=== PATIENT | female | born 1990 | race Caucasian/White ===

== ENCOUNTER 2017-08-30 12:09 | Emergency (ER) | payer SELFPAY ==
--- NOTE | 2017-08-30 12:56 | EDM.PDOC ---
ED HPI GENERAL MEDICAL PROBLEM - General Chief Complaint: Laceration Stated Complaint: PT CUT FINGER ON LT HAND Time Seen by Provider: 08/30/17 12:50 Source of Information: Reports: Patient History Limitations: Reports: No Limitations - History of Present Illness INITIAL COMMENTS - FREE TEXT/NARRATIVE: HISTORY AND PHYSICAL: History of present illness: [Patient comes to the emergency room for evaluation of a laceration to her left thumb. Occurred just prior to her arrival in the emergency room. She was working on a wood grinder, when her hand slipped cutting into her glove and the tip of her left thumb. She complained of immediate pain and some bleeding which has completely resolved. She cannot remember the date of her last tetanus. Has no other complaints or concerns.] Review of systems: As per history of present illness and below otherwise all systems reviewed and negative. Past medical history: As per history of present illness and as reviewed below otherwise noncontributory. Surgical history: As per history of present illness and as reviewed below otherwise noncontributory. Social history: No reported history of drug or alcohol abuse. Family history: As per history of present illness and as reviewed below otherwise noncontributory. Physical exam: HEENT: Atraumatic, normocephalic. Extremities: 1 cm long superficial laceration to the tip of her mid left thumb. Part of the tip of the nail has been ground down. No cuticle involvement. Hand is otherwise atraumatic. Neurovascular unremarkable. Neuro: Awake, alert, oriented. Motor and sensory unremarkable throughout. Exam nonfocal. Impression: [Superficial laceration left thumb] Plan: [Wound is cleansed and a copious amount of normal saline and chlorhexidine. Due to the nature of the injury there is no tissue present to be sutured. Will heal by secondary intention. Bacitracin is applied and dressed with roll gauze. Wound care instructions given. Strict return precautions discussed. Patient is in agreement with today's discussion. Tetanus is updated.] Definitive disposition and diagnosis as appropriate pending reevaluation and review of above. Left 1-Thumb Pain Score (Numeric/FACES): 1 - Related Data Allergies Allergy/AdvReac Type Severity Reaction Status Date / Time No Known Allergies Allergy Verified 08/30/17 12:28 Home Meds: Home Meds . [No Known Home Meds] 08/30/17 [History] Past Medical History - Past Health History Medical/Surgical History: Denies Medical/Surgical History - Infectious Disease History Infectious Disease History: Reports: Chicken Pox Social & Family History - Family History Family Medical History: Noncontributory - Tobacco Use Smoking Status *Q: Never Smoker - Caffeine Use Caffeine Use: Reports: Coffee - Recreational Drug Use Recreational Drug Use: No ED ROS GENERAL - Review of Systems Review Of Systems: ROS reveals no pertinent complaints other than HPI. ED EXAM, SKIN/RASH Exam: See Below Course - Vital Signs Last Recorded V/S: Last Vital Signs Temp 97.9 F 08/30/17 12:24 Pulse 69 08/30/17 13:45 Resp 16 08/30/17 13:45 BP 96/62 08/30/17 13:45 Pulse Ox 98 08/30/17 13:45 - Orders/Labs/Meds Orders: Active Orders 24 hr Category Date Time Status Vaccines to be Administered [RC] PER UNIT ROUTINE Care 08/30/17 12:59 Active Meds: Medications Discontinued Medications Generic Name Dose Route Start Last Admin Trade Name Josey PRN Reason Stop Dose Admin Bacitracin 1 dose 08/30/17 12:58 08/30/17 13:20 Bacitracin Oint 1 Gm TOP 08/30/17 12:59 1 dose ONETIME ONE Administration Diphtheria/Tetanus/Acell Pertussis 0.5 ml 08/30/17 12:58 08/30/17 13:14 Adacel IM 08/30/17 12:59 0.5 ml .ONCE ONE Administration Departure - Departure Time of Disposition: 13:00 Disposition: Home, Self-Care 01 Condition: Good Clinical Impression: Laceration - Discharge Information Instructions: Laceration Care, Adult Referrals: [facility] [Outside] PCP,None [Primary Care Provider] - Forms: ED Department Discharge Additional Instructions: The following information is given to patients seen in the emergency department who are being discharged to home. This information is to outline your options for follow-up care. We provide all patients seen in our emergency department with a follow-up referral. The need for follow-up, as well as the timing and circumstances, are variable depending upon the specifics of your emergency department visit. If you don't have a primary care physician on staff, we will provide you with a referral. We always advise you to contact your personal physician following an emergency department visit to inform them of the circumstance of the visit and for follow-up with them and/or the need for any referrals to a consulting specialist. The emergency department will also refer you to a specialist when appropriate. This referral assures that you have the opportunity for follow-up care with a specialist. All of these measure are taken in an effort to provide you with optimal care, which includes your follow-up. Under all circumstances we always encourage you to contact your private physician who remains a resource for coordinating your care. When calling for follow-up care, please make the office aware that this follow-up is from your recent emergency room visit. If for any reason you are refused follow-up, please contact the [facility] emergency department at and asked to speak to the emergency department charge nurse. [facility] [address] [place] [id number] Follow-up with your primary care provider at the clinic listed above in 48-72 hours. Keep hands clean and dry. You may shower normally tomorrow. Apply Neosporin and gauze twice daily. Return to ER as needed as discussed. - My Orders Last 24 Hours: My Active Orders 08/30/17 12:59 Vaccines to be Administered [RC] PER UNIT ROUTINE - Assessment/Plan Last 24 Hours: My Active Orders 08/30/17 12:59 Vaccines to be Administered [RC] PER UNIT ROUTINE
[2017-08-30] MEDS ORDERED: Bacitracin Oint 1 GM U/D Packet TOP ONE (12:58)
[2017-08-30] MEDS ORDERED: Diphtheria,Pertussis(Acell),Tetanus Vaccine 0.5 ML Syringe IM ONE (12:58)
== END 2017-08-30 13:45 | disposition home or self-care (01) ==
LOC: MW.ED 12:09
DX: S61.012A Laceration without foreign body of left thumb without damage to nail, initial encounter (principal); Z23 Encounter for immunization; W29.0XXA Contact with powered kitchen appliance, initial encounter
CPT/HCPCS: 90471; 90715; 99282; 99282-25